=== PATIENT | female | born 1935 | race Caucasian/White ===

== ENCOUNTER 2016-12-13 05:29 | Day surgery (SDC) | payer OTHER, BC ==
[~2016-12-13] VITALS: Ht 157.5 cm; Wt 69.4 kg
[~2016-12-13 05:29] MED LIST: ADULT LOW DOSE81 M1 PO; ADVAIR 100/501 DISK IH; GLIPIZIDE5 MG PO; GLUCOTROL XL2.5 MG PO; LIPITOR40 MG PO; LOSARTAN-HCTZ1 EAC1 PO; MULTIVITAMIN1 EAC2 PO; OMEPRAZOLE40 M1 PO; PROAIR HFA8.5 GM IH; TOFRANIL25 MG PO; VENTOLIN HFA18 GM IH
[2016-12-13 05:50] VITALS: BP 127/62
[2016-12-13 06:14] LABS: POINT-OF-CARE METER ID UU13113694
[2016-12-13 12:14] LABS: POINT-OF-CARE METER ID UU13113675
[2016-12-13 13:30] VITALS: BP 104/48
[2016-12-13] MEDS ORDERED: ASMANEX TW200 MICRO1 PO (14:25)
[2016-12-13 15:20] VITALS: BP 132/58
[2016-12-13 17:24] LABS: POINT-OF-CARE METER ID UU14162508; POINT-OF-CARE USER ID PUTDRM
[2016-12-13 19:44] VITALS: BP 139/64
[2016-12-13 22:00] LABS: POINT-OF-CARE METER ID UU14208750
[2016-12-13 23:39] VITALS: BP 110/56
[2016-12-14 04:15] VITALS: BP 117/57
[2016-12-14 06:30] LABS: POINT-OF-CARE METER ID UU14162508
[2016-12-14 06:43] LABS: HEMATOCRIT 33.5 % (36.0-46.0); MCH 28.9 PG (29.0-34.0); MCHC 32.8 G/DL (30.0-36.0); MCV 88.2 FL (83-99); PLATELET COUNT 200 K/uL (156-360); RBC DIS.WIDTH-CV 12.9 % (11.8-14.6); RBC DIS.WIDTH-SD 41.2 % (39-53); WHITE BLOOD COUNT 4.6 K/uL (4.1-10.2)
[2016-12-14 07:10] LABS: ANION GAP 7 MEQ/L (2-14); CHLORIDE 112 MEQ/L (99-109); GFR ESTIMATE (CALCULATED) 50 mL/min/; GLUCOSE 77 mg/dL (70-99); POTASSIUM 4.1 MEQ/L (3.7-5.4); SAMPLE HEMOLYSIS CHECK 0; SAMPLE ICTERIC CHECK 0; SAMPLE LIPEMIA CHECK 0; SODIUM 145 MEQ/L (136-147); UREA NITROGEN (BUN) 18 mg/dL (9-23)
[2016-12-14 07:42] VITALS: BP 139/66
[2016-12-14] MEDS ORDERED: NORCO 5/3251 TABLET PO (09:37)
[2016-12-14 11:28] VITALS: BP 115/55
[2016-12-14 11:52] LABS: POINT-OF-CARE METER ID UU14208750
== END 2016-12-14 12:40 | disposition home or self-care (01) ==
LOC: SDC 05:29 → 2SOUTH 11:49 → 2EAST 11:49 → 2SOUTH 11:49 → ENRESERV 12:10 → SDC 13:03 → 2EAST 13:20 → SDC 14:23 → 2EAST 12-14 12:40
PROVIDERS: Surgery
DX: C50.912 Malignant neoplasm of unspecified site of left female breast (principal); C77.3 Secondary and unspecified malignant neoplasm of axilla and upper limb lymph nodes; E78.5 Hyperlipidemia, unspecified; I10 Essential (primary) hypertension; J44.9 Chronic obstructive pulmonary disease, unspecified; Z87.891 Personal history of nicotine dependence; Z80.0 Family history of malignant neoplasm of digestive organs; Z80.3 Family history of malignant neoplasm of breast; Z82.49 Family history of ischemic heart disease and other diseases of the circulatory system
CPT/HCPCS: 78195; 78999; 80048; 82948; 85027; 88305; 88309; 88331; 99202; A9541; G0378; J0330; J1170; J2405; J2765; J3010; J3370; J7120

== ENCOUNTER 2017-01-24 00:23 | Inpatient (IN) | payer OTHER, BC ==
[~2017-01-24] VITALS: Ht 157.5 cm; Wt 73.8 kg
[~2017-01-24 00:23] MED LIST changes: +ASMANEX TW200 MICRO1 PO; +NORCO 5/3251 TABLET PO
[2017-01-24 00:55] LABS: HEMATOCRIT 35.1 % (36.0-46.0); MCH 28.3 PG (29.0-34.0); MCHC 32.8 G/DL (30.0-36.0); MCV 86.2 FL (83-99); MEAN PLAT.VOLUME 9.4 uM^3 (9.5-12.4); RBC DIS.WIDTH-CV 13.2 % (11.8-14.6); RBC DIS.WIDTH-SD 41.4 % (39-53); RED BLOOD COUNT 4.07 M/uL (3.80-5.20); WHITE BLOOD COUNT 10.8 K/uL (4.1-10.2)
[2017-01-24 01:01] LABS: PLATELET COUNT 204 K/uL (156-360)
[2017-01-24 01:10] LABS: CHLORIDE 99 mEq/L (99-109); POTASSIUM 3.9 mEq/L (3.7-5.4); SODIUM 137 mEq/L (136-147)
[2017-01-24 01:12] LABS: GLUCOSE 91 mg/dL (70-99)
[2017-01-24 01:13] LABS: ANION GAP 10 MEQ/L (2-14)
[2017-01-24 01:14] LABS: TOTAL BILIRUBIN 0.6 mg/dL (0.0-1.0)
[2017-01-24 01:15] LABS: TROP-I INTERPRETATION NEGATIVE; TROPONIN-I 0.01 ng/mL (0.0-0.30)
[2017-01-24 01:16] LABS: ALKALINE PHOSPHATASE 90 IU/L (3-129); GFR ESTIMATE (CALCULATED) 14 mL/min/
[2017-01-24 01:17] LABS: UREA NITROGEN (BUN) 43 mg/dL (9-23)
[2017-01-24 01:19] LABS: LIPASE 35 U/L (1.0-51.0)
[2017-01-24 01:50] LABS: ADD MIUA? YES; BILIRUBIN NEGATIVE; BLOOD LARGE; COLOR LT. YELLOW ((YELLOW)); GLUCOSE (STRIP) NEGATIVE; KETONES NEGATIVE; LEUKOCYTES LARGE; NITRITE POSITIVE; PH, URINE 6 (5-8); PROTEIN (STRIP) 100; SPECIFIC GRAVITY 1.015 (1.000-1.030); UROBILINOGEN 0.2 MG/DL (0.2-1.0)
[2017-01-24 01:53] LABS: UCUL ADDED? YES; WHITE BLOOD CELLS TNTC /HPF (0-5)
[2017-01-24 02:26] LABS: CREATINE KINASE 25 IU/L (1-294)
[2017-01-24 05:44] VITALS: BP 111/52
[2017-01-24 06:41] VITALS: BP 82/46
[2017-01-24 06:42] LABS: Estimated Average Glucose 143 mg/dL (70-123); HEMOGLOBIN A1c (GLYCOHEMOGLOB) 6.6 % HGB (Below 5.7)
[2017-01-24 07:23] LABS: POINT-OF-CARE METER ID UU13113725
[2017-01-24 09:30] LABS: ANION GAP 13 MEQ/L (2-14); CHLORIDE 108 MEQ/L (99-109); GFR ESTIMATE (CALCULATED) 17 mL/min/; GLUCOSE 67 mg/dL (70-99); POTASSIUM 3.8 MEQ/L (3.7-5.4); SAMPLE HEMOLYSIS CHECK 0; SAMPLE ICTERIC CHECK 0; SAMPLE LIPEMIA CHECK 0; SODIUM 140 MEQ/L (136-147); UREA NITROGEN (BUN) 36 mg/dL (9-23)
[2017-01-24 11:00] VITALS: BP 93/44
[2017-01-24 11:15] LABS: POINT-OF-CARE METER ID UU13113725
[2017-01-24 13:03] LABS: POINT-OF-CARE METER ID UU13113675
[2017-01-24 13:55] LABS: POINT-OF-CARE METER ID UU13113675
[2017-01-24 15:15] VITALS: BP 153/56
[2017-01-24 18:11] LABS: ANION GAP 11 MEQ/L (2-14); CHLORIDE 110 MEQ/L (99-109); POTASSIUM 3.4 MEQ/L (3.7-5.4); SAMPLE HEMOLYSIS CHECK 0; SAMPLE ICTERIC CHECK 0; SAMPLE LIPEMIA CHECK 0; SODIUM 142 MEQ/L (136-147)
[2017-01-24 18:16] LABS: GFR ESTIMATE (CALCULATED) 20 mL/min/; UREA NITROGEN (BUN) 33 mg/dL (9-23)
[2017-01-24 18:27] LABS: GLUCOSE 102 mg/dL (70-99)
[2017-01-25 00:44] VITALS: BP 101/54
[2017-01-25 00:47] LABS: POINT-OF-CARE METER ID UU13113725
[2017-01-25 01:29] LABS: POINT-OF-CARE METER ID UU13113725; POINT-OF-CARE USER ID 608261316
[2017-01-25 02:41] LABS: UR CREATININE CONCENTRATION 38.6 MG/DL
[2017-01-25 06:38] LABS: HEMATOCRIT 29.9 % (36.0-46.0); MCH 28.1 PG (29.0-34.0); MCHC 32.1 G/DL (30.0-36.0); MCV 87.4 FL (83-99); MEAN PLAT.VOLUME 10.1 uM^3 (9.5-12.4); PLATELET COUNT 210 K/uL (156-360); RBC DIS.WIDTH-CV 13.4 % (11.8-14.6); RBC DIS.WIDTH-SD 42.6 % (39-53); RED BLOOD COUNT 3.42 M/uL (3.80-5.20); WHITE BLOOD COUNT 20.2 K/uL (4.1-10.2)
[2017-01-25 06:41] LABS: POINT-OF-CARE METER ID UU13113725
[2017-01-25 07:02] LABS: ANION GAP 10 MEQ/L (2-14); CHLORIDE 111 MEQ/L (99-109); GFR ESTIMATE (CALCULATED) 22 mL/min/; POTASSIUM 3.6 MEQ/L (3.7-5.4); SAMPLE HEMOLYSIS CHECK 0; SAMPLE ICTERIC CHECK 0; SAMPLE LIPEMIA CHECK 0; SODIUM 143 MEQ/L (136-147); UREA NITROGEN (BUN) 32 mg/dL (9-23)
[2017-01-25 07:03] LABS: GLUCOSE 54 mg/dL (70-99)
[2017-01-25 07:46] LABS: POINT-OF-CARE METER ID UU13113725
[2017-01-25 08:30] VITALS: BP 120/68
[2017-01-25 09:24] LABS: ATYPICAL LYMPHOCYTE 0.9 %; BAND NEUTROPHILS 8.7 % (0-8.0); BASOPHILS 0.4 %; EOSINOPHIL ABS CT 0.1; EOSINOPHILS 0.4 % (0-5.0); INSTRUMENT ABS NEUTROPHIL CT 13.3 K/uL; LYMPHOCYTES 10.4 % (15.0-45.0); METAMYELOCYTES 0.9 %; MYELOCYTES 5.2 %; PLAT.SUFFICIENCY ADEQUATE; SEG.NEUTROPHILS 70.5 % (46.0-76.0)
[2017-01-25 10:53] LABS: POINT-OF-CARE METER ID UU13113725
[2017-01-25 16:08] VITALS: BP 125/60
[2017-01-25 16:35] VITALS: BP 130/60
[2017-01-25 16:55] LABS: POINT-OF-CARE METER ID UU13113774
[2017-01-25 19:25] LABS: POINT-OF-CARE METER ID UU13113725
[2017-01-25 21:02] LABS: POINT-OF-CARE METER ID UU13113725
[2017-01-25 21:34] VITALS: BP 119/60
[2017-01-25 23:51] VITALS: BP 124/65
[2017-01-26 01:07] LABS: POINT-OF-CARE METER ID UU13113717
[2017-01-26 03:45] VITALS: BP 130/67
[2017-01-26 06:09] LABS: POINT-OF-CARE METER ID UU14188625
[2017-01-26 06:43] LABS: HEMATOCRIT 31.1 % (36.0-46.0); MCH 27.9 PG (29.0-34.0); MCHC 32.2 G/DL (30.0-36.0); MCV 86.9 FL (83-99); MEAN PLAT.VOLUME 9.5 uM^3 (9.5-12.4); PLATELET COUNT 242 K/uL (156-360); RBC DIS.WIDTH-CV 13.2 % (11.8-14.6); RBC DIS.WIDTH-SD 41.8 % (39-53); RED BLOOD COUNT 3.58 M/uL (3.80-5.20); WHITE BLOOD COUNT 19.7 K/uL (4.1-10.2)
[2017-01-26 07:05] LABS: HDL CHOLESTEROL 22 MG/DL (Desirable>=50); LDL CHOLESTEROL 14 mg/dL (Desirable<100); NON-HDL CHOLESTEROL 27 mg/dL (Desirable<160); TOTAL CHOLESTEROL 49 mg/dL (Desirable<200); TRIGLYCERIDES 65 MG/DL (Normal: <150)
[2017-01-26 07:08] LABS: ANION GAP 9 MEQ/L (2-14); CHLORIDE 113 MEQ/L (99-109); GFR ESTIMATE (CALCULATED) 29 mL/min/; POTASSIUM 3.7 MEQ/L (3.7-5.4); SAMPLE HEMOLYSIS CHECK 0; SAMPLE ICTERIC CHECK 0; SAMPLE LIPEMIA CHECK 0; SODIUM 144 MEQ/L (136-147); UREA NITROGEN (BUN) 25 mg/dL (9-23)
[2017-01-26 07:10] LABS: ABS NEUTROPHIL COUNT 14.9; BAND NEUTROPHILS 3.4 % (0-8.0); EOSINOPHIL ABS CT 0; HEMATOLOGY COMMENT 1 SN; INSTRUMENT ABS NEUTROPHIL CT 11.3 K/uL; LYMPHOCYTES 9.3 % (15.0-45.0); METAMYELOCYTES 6.8 %; MYELOCYTES 3.4 %; PLAT.SUFFICIENCY ADEQUATE
[2017-01-26 07:20] LABS: GLUCOSE 81 mg/dL (70-99)
[2017-01-26 08:13] VITALS: BP 131/58
[2017-01-26 12:25] VITALS: BP 133/61
[2017-01-26 12:41] LABS: POINT-OF-CARE METER ID UU14188625
[2017-01-26 17:11] VITALS: BP 146/62
[2017-01-26 19:37] VITALS: BP 155/71
[2017-01-26 23:36] VITALS: BP 155/68
[2017-01-27 03:49] VITALS: BP 144/75
[2017-01-27 05:51] LABS: HEMATOCRIT 30.4 % (36.0-46.0); MCHC 33.2 G/DL (30.0-36.0); MCV 87.4 FL (83-99); MEAN PLAT.VOLUME 9.3 uM^3 (9.5-12.4); PLATELET COUNT 247 K/uL (156-360); RBC DIS.WIDTH-CV 13.4 % (11.8-14.6); RBC DIS.WIDTH-SD 42.5 % (39-53); RED BLOOD COUNT 3.48 M/uL (3.80-5.20); WHITE BLOOD COUNT 18.6 K/uL (4.1-10.2)
[2017-01-27 06:14] LABS: ANION GAP 8 MEQ/L (2-14); CHLORIDE 114 MEQ/L (99-109); GFR ESTIMATE (CALCULATED) 35 mL/min/; GLUCOSE 82 mg/dL (70-99); POTASSIUM 3.7 MEQ/L (3.7-5.4); SAMPLE HEMOLYSIS CHECK 0; SAMPLE ICTERIC CHECK 0; SAMPLE LIPEMIA CHECK 0; SODIUM 145 MEQ/L (136-147); UREA NITROGEN (BUN) 18 mg/dL (9-23)
[2017-01-27 07:31] LABS: ABS NEUTROPHIL COUNT 15.5; ANISOCYTOSIS 1+; BASOPHILS 0.9 %; EOSINOPHIL ABS CT 0.2; EOSINOPHILS 0.9 % (0-5.0); INSTRUMENT ABS NEUTROPHIL CT 10.5 K/uL; METAMYELOCYTES 2.6 %; NUCLEATED RBC'S 1.8; OVALOCYTES 1+; PLAT.SUFFICIENCY ADEQUATE; POIKILOCYTOSIS 1+; SEG.NEUTROPHILS 57.5 % (46.0-76.0)
[2017-01-27 07:54] VITALS: BP 144/66
[2017-01-27 08:39] LABS: BAND NEUTROPHILS 25.7 % (0-8.0)
[2017-01-27 21:36] LABS: POINT-OF-CARE METER ID UU14188625
[2017-01-27 23:49] VITALS: BP 161/72
[2017-01-28 05:42] LABS: POINT-OF-CARE METER ID UU13113717
[2017-01-28 06:15] LABS: ANION GAP 10 MEQ/L (2-14); CHLORIDE 112 MEQ/L (99-109); GFR ESTIMATE (CALCULATED) 33 mL/min/; GLUCOSE 91 mg/dL (70-99); POTASSIUM 3.7 MEQ/L (3.7-5.4); SAMPLE HEMOLYSIS CHECK 0; SAMPLE ICTERIC CHECK 0; SAMPLE LIPEMIA CHECK 0; SODIUM 144 MEQ/L (136-147); UREA NITROGEN (BUN) 21 mg/dL (9-23)
[2017-01-28 06:17] LABS: HEMATOCRIT 30.2 % (36.0-46.0); MCH 28.3 PG (29.0-34.0); MCHC 32.1 G/DL (30.0-36.0); MEAN PLAT.VOLUME 9.1 uM^3 (9.5-12.4); NRBC (%) 0.2 /100 WBC (0-0); PLATELET COUNT 243 K/uL (156-360); RBC DIS.WIDTH-CV 13.2 % (11.8-14.6); RBC DIS.WIDTH-SD 42.8 % (39-53); RED BLOOD COUNT 3.43 M/uL (3.80-5.20); WHITE BLOOD COUNT 16.6 K/uL (4.1-10.2)
[2017-01-28 07:38] LABS: ABS NEUTROPHIL COUNT 11.3; ANISOCYTOSIS 1+; EOSINOPHIL ABS CT 0; INSTRUMENT ABS NEUTROPHIL CT 9.8 K/uL; PLAT.SUFFICIENCY ADEQUATE; POIKILOCYTOSIS 1+
[2017-01-28 08:06] LABS: POINT-OF-CARE METER ID UU13113717
[2017-01-28 08:57] VITALS: BP 126/72
[2017-01-28 11:48] LABS: POINT-OF-CARE METER ID UU13113717
[2017-01-28 16:50] VITALS: BP 131/58
[2017-01-28 20:53] LABS: POINT-OF-CARE METER ID UU13113717
[2017-01-29 00:10] VITALS: BP 164/66
[2017-01-29] MEDS ORDERED: ATORVASTATIN CA80 MG PO (01:01)
[2017-01-29 05:50] LABS: HEMATOCRIT 30.2 % (36.0-46.0); MCH 29.1 PG (29.0-34.0); MCHC 33.1 G/DL (30.0-36.0); MCV 87.8 FL (83-99); MEAN PLAT.VOLUME 9.2 uM^3 (9.5-12.4); PLATELET COUNT 229 K/uL (156-360); RBC DIS.WIDTH-CV 13.5 % (11.8-14.6); RED BLOOD COUNT 3.44 M/uL (3.80-5.20); WHITE BLOOD COUNT 15.1 K/uL (4.1-10.2)
[2017-01-29 06:14] LABS: ANION GAP 8 MEQ/L (2-14); CHLORIDE 113 MEQ/L (99-109); GFR ESTIMATE (CALCULATED) 42 mL/min/; GLUCOSE 94 mg/dL (70-99); POTASSIUM 3.8 MEQ/L (3.7-5.4); SAMPLE HEMOLYSIS CHECK 0; SAMPLE ICTERIC CHECK 0; SAMPLE LIPEMIA CHECK 0; SODIUM 145 MEQ/L (136-147); UREA NITROGEN (BUN) 18 mg/dL (9-23)
[2017-01-29 06:56] LABS: ANISOCYTOSIS 1+; EOSINOPHIL ABS CT 0; INSTRUMENT ABS NEUTROPHIL CT 8.4 K/uL; PLAT.SUFFICIENCY ADEQUATE; POIKILOCYTOSIS 1+
[2017-01-29 08:16] LABS: POINT-OF-CARE METER ID UU14188625
[2017-01-29 08:22] VITALS: BP 144/65
[2017-01-29 12:06] LABS: POINT-OF-CARE METER ID UU14188625
[2017-01-29 15:55] VITALS: BP 119/56
[2017-01-29 17:07] LABS: POINT-OF-CARE METER ID UU14188625
[2017-01-29 20:59] LABS: POINT-OF-CARE METER ID UU14188625
[2017-01-30] VITALS: BP 145/75
[2017-01-30 05:59] LABS: HEMATOCRIT 30.4 % (36.0-46.0); MCH 28.5 PG (29.0-34.0); MCHC 32.6 G/DL (30.0-36.0); MCV 87.6 FL (83-99); MEAN PLAT.VOLUME 9.2 uM^3 (9.5-12.4); PLATELET COUNT 228 K/uL (156-360); RBC DIS.WIDTH-CV 13.6 % (11.8-14.6); RBC DIS.WIDTH-SD 42.2 % (39-53); RED BLOOD COUNT 3.47 M/uL (3.80-5.20); WHITE BLOOD COUNT 18.3 K/uL (4.1-10.2)
[2017-01-30 06:27] LABS: ANION GAP 8 MEQ/L (2-14); CHLORIDE 111 MEQ/L (99-109); GFR ESTIMATE (CALCULATED) 42 mL/min/; GLUCOSE 102 mg/dL (70-99); POTASSIUM 3.8 MEQ/L (3.7-5.4); SAMPLE HEMOLYSIS CHECK 0; SAMPLE ICTERIC CHECK 0; SAMPLE LIPEMIA CHECK 0; SODIUM 143 MEQ/L (136-147); UREA NITROGEN (BUN) 18 mg/dL (9-23)
[2017-01-30 06:32] LABS: ABS NEUTROPHIL COUNT 14.4; ATYPICAL LYMPHOCYTE 0.9 %; BAND NEUTROPHILS 2.6 % (0-8.0); EOSINOPHIL ABS CT 0; INSTRUMENT ABS NEUTROPHIL CT 13.2 K/uL; MYELOCYTES 3.4 %; PLAT.SUFFICIENCY ADEQUATE
[2017-01-30 06:51] LABS: LYMPHOCYTES 9.5 % (15.0-45.0); SEG.NEUTROPHILS 75.9 % (46.0-76.0)
[2017-01-30 08:06] LABS: POINT-OF-CARE METER ID UU14188625
[2017-01-30 08:12] VITALS: BP 142/68
[2017-01-30 12:05] LABS: POINT-OF-CARE METER ID UU14188625
[2017-01-30 16:28] VITALS: BP 133/60
[2017-01-30 17:36] LABS: POINT-OF-CARE METER ID UU14188625
[2017-01-30 21:27] LABS: POINT-OF-CARE METER ID UU13113717
[2017-01-31 00:24] VITALS: BP 136/51
[2017-01-31] MEDS ORDERED: CEPHALEXIN500 MG PO (00:29)
[2017-01-31] MEDS ORDERED: METRONIDAZOLE500 MG PO (00:30)
[2017-01-31] MEDS ORDERED: ASPIR-LOW81 MG PO (00:30)
[2017-01-31] MEDS ORDERED: LOSARTAN POTASS25 MG PO (00:53)
[2017-01-31 06:38] LABS: HEMATOCRIT 29.5 % (36.0-46.0); MCH 29.3 PG (29.0-34.0); MCHC 33.2 G/DL (30.0-36.0); MCV 88.1 FL (83-99); MEAN PLAT.VOLUME 9.5 uM^3 (9.5-12.4); NRBC (%) 0.1 /100 WBC (0-0); PLATELET COUNT 224 K/uL (156-360); RBC DIS.WIDTH-CV 13.9 % (11.8-14.6); RBC DIS.WIDTH-SD 43.7 % (39-53); RED BLOOD COUNT 3.35 M/uL (3.80-5.20); WHITE BLOOD COUNT 13.8 K/uL (4.1-10.2)
[2017-01-31 06:57] LABS: ANION GAP 8 MEQ/L (2-14); CHLORIDE 112 MEQ/L (99-109); POTASSIUM 4.1 MEQ/L (3.7-5.4); SAMPLE HEMOLYSIS CHECK 0; SAMPLE ICTERIC CHECK 0; SAMPLE LIPEMIA CHECK 0; SODIUM 144 MEQ/L (136-147)
[2017-01-31 07:02] LABS: ABS NEUTROPHIL COUNT 11.1; BAND NEUTROPHILS 5.2 % (0-8.0); EOSINOPHIL ABS CT 0.1; EOSINOPHILS 0.8 % (0-5.0); GFR ESTIMATE (CALCULATED) 50 mL/min/; GLUCOSE 100 mg/dL (70-99); INSTRUMENT ABS NEUTROPHIL CT 9.1 K/uL; LYMPHOCYTES 8.6 % (15.0-45.0); MYELOCYTES 5.2 %; PLAT.SUFFICIENCY ADEQUATE; UREA NITROGEN (BUN) 20 mg/dL (9-23)
[2017-01-31 08:00] VITALS: BP 130/53
[2017-01-31] MEDS ORDERED: ROCEPHIN1 GM/50 ML IV (14:57)
[2017-01-31] MEDS ORDERED: PEPCID20 MG PO (14:58)
[2017-01-31] MEDS ORDERED: HEPARIN SO5000 UNIT4 SC (14:59)
[2017-01-31] MEDS ORDERED: FLOVENT 11120 INHALA IH (15:00)
== END 2017-01-31 14:45 | DRG 682 ==
LOC: EME 00:23 → 5EAST 04:03 → EDOF 04:03 → ENRESERV 04:06 → 5EAST 05:27 → ENRESERV 01-25 19:10 → 5SOUTH 01-25 21:24
PROVIDERS: Emergency Medicine; Hospitalist; Internal Medicine; Internal Medicine Nephrology
PROC: 0T778DZ Dilation of Left Ureter with Intraluminal Device, Via Natural or Artificial Opening Endoscopic (ICD-10-PCS; principal; 2017-01-24)
DX: N17.0 Acute kidney failure with tubular necrosis (principal); E86.0 Dehydration; N13.6 Pyonephrosis; B96.20 Unspecified Escherichia coli [E. coli] as the cause of diseases classified elsewhere; K57.32 Diverticulitis of large intestine without perforation or abscess without bleeding; I97.821 Postprocedural cerebrovascular infarction following other surgery; I63.512 Cerebral infarction due to unspecified occlusion or stenosis of left middle cerebral artery; G81.91 Hemiplegia, unspecified affecting right dominant side; L03.114 Cellulitis of left upper limb; L03.113 Cellulitis of right upper limb; L03.311 Cellulitis of abdominal wall; I12.9 Hypertensive chronic kidney disease with stage 1 through stage 4 chronic kidney disease, or unspecified chronic kidney disease; N18.9 Chronic kidney disease, unspecified; E11.22 Type 2 diabetes mellitus with diabetic chronic kidney disease; E11.649 Type 2 diabetes mellitus with hypoglycemia without coma; J44.9 Chronic obstructive pulmonary disease, unspecified; C50.912 Malignant neoplasm of unspecified site of left female breast; L89.91 Pressure ulcer of unspecified site, stage 1; K21.9 Gastro-esophageal reflux disease without esophagitis; E78.5 Hyperlipidemia, unspecified; Z88.2 Allergy status to sulfonamides; Z88.1 Allergy status to other antibiotic agents; Z87.891 Personal history of nicotine dependence
CPT/HCPCS: 70551; 71020; 74176; 74420; 80048; 80048 91; 80053; 80061; 80069; 81003; 82436; 82550; 82570; 82948; 83036; 83605; 83630; 83690; 84133; 84300; 84484; 84540; 85025; 85027; 87040; 87077; 87086; 87086 GA; 87186; 87493; 87506; 92610 GN; 93005; 93306; 93880; 93971; 94640; 94640 76; 97530 GO; 97530 GP; 99202; 99281; 99285; C1758; C1769; J0696; J0744; J1644; J1815; J2405; J3010; J7030; J7042; J7050; J7120; S0030

== ENCOUNTER 2017-01-31 14:39 | Inpatient (IN) | payer OTHER, BC ==
[~2017-01-31] VITALS: Ht 157.5 cm; Wt 75.0 kg
[~2017-01-31 14:39] MED LIST changes: +ASPIR-LOW81 MG PO; +ATORVASTATIN CA80 MG PO; +CEPHALEXIN500 MG PO; +LOSARTAN POTASS25 MG PO; +METRONIDAZOLE500 MG PO
[2017-01-31] MEDS ORDERED: ROCEPHIN1 GM/50 ML IV (14:57)
[2017-01-31] MEDS ORDERED: PEPCID20 MG PO (14:58)
[2017-01-31] MEDS ORDERED: HEPARIN SO5000 UNIT4 SC (14:59)
[2017-01-31] MEDS ORDERED: FLOVENT 11120 INHALA IH (15:00)
[2017-01-31 15:11] VITALS: BP 151/62
[2017-01-31 17:01] LABS: POINT-OF-CARE METER ID UU13113720
[2017-01-31 21:23] LABS: POINT-OF-CARE METER ID UU13113720
[2017-02-01 04:44] VITALS: BP 141/86
[2017-02-01 06:32] LABS: HEMATOCRIT 30.3 % (36.0-46.0); MCH 29.1 PG (29.0-34.0); MCHC 32.7 G/DL (30.0-36.0); MCV 89.1 FL (83-99); PLATELET COUNT 259 K/uL (156-360); RBC DIS.WIDTH-SD 45.1 % (39-53); WHITE BLOOD COUNT 12.1 K/uL (4.1-10.2)
[2017-02-01 07:01] LABS: ALKALINE PHOSPHATASE 65 IU/L (3-129); ANION GAP 6 MEQ/L (2-14); CHLORIDE 111 MEQ/L (99-109); GFR ESTIMATE (CALCULATED) 50 mL/min/; GLUCOSE 94 mg/dL (70-99); POTASSIUM 4.6 MEQ/L (3.7-5.4); SAMPLE HEMOLYSIS CHECK 0; SAMPLE ICTERIC CHECK 0; SAMPLE LIPEMIA CHECK 0; SODIUM 143 MEQ/L (136-147); TOTAL BILIRUBIN 0.3 MG/DL (0.0-1.0); UREA NITROGEN (BUN) 23 mg/dL (9-23)
[2017-02-01 11:27] LABS: POINT-OF-CARE METER ID UU13113720; POINT-OF-CARE USER ID AHSSSJB31
[2017-02-01 16:00] VITALS: BP 144/66
[2017-02-01 16:45] LABS: POINT-OF-CARE METER ID UU14174215
[2017-02-01 21:20] LABS: POINT-OF-CARE METER ID UU14174215
[2017-02-02 04:25] VITALS: BP 136/64
[2017-02-02 07:03] LABS: POINT-OF-CARE METER ID UU14174215
[2017-02-02 11:02] LABS: POINT-OF-CARE METER ID UU14174215
[2017-02-02 16:01] VITALS: BP 123/59
[2017-02-02 16:41] LABS: POINT-OF-CARE METER ID UU13113720
[2017-02-02 21:12] LABS: POINT-OF-CARE METER ID UU14174215
[2017-02-03 04:40] VITALS: BP 121/58
[2017-02-03 06:56] LABS: POINT-OF-CARE METER ID UU13113720; POINT-OF-CARE USER ID ENVGAF
[2017-02-03 11:12] LABS: POINT-OF-CARE METER ID UU14174215
[2017-02-03 12:53] LABS: POINT-OF-CARE METER ID UU14174215
[2017-02-03 15:05] VITALS: BP 142/65
[2017-02-03 16:06] LABS: POINT-OF-CARE METER ID UU14174215
[2017-02-03 21:04] LABS: POINT-OF-CARE METER ID UU14174215
[2017-02-04 05:34] VITALS: BP 146/67
[2017-02-04 06:54] LABS: POINT-OF-CARE METER ID UU13113720; POINT-OF-CARE USER ID ENVGAF
[2017-02-04 11:25] LABS: POINT-OF-CARE METER ID UU14174215
[2017-02-04 15:12] VITALS: BP 150/66
[2017-02-04 16:33] LABS: POINT-OF-CARE METER ID UU14174215
[2017-02-04 20:10] VITALS: BP 121/78
[2017-02-04 21:16] LABS: POINT-OF-CARE METER ID UU14174215
[2017-02-05 05:05] VITALS: BP 112/59
[2017-02-05 07:09] LABS: POINT-OF-CARE METER ID UU14174215
[2017-02-05 11:44] LABS: POINT-OF-CARE METER ID UU14174215; POINT-OF-CARE USER ID AHSSSJB31
[2017-02-05 16:00] VITALS: BP 157/67
[2017-02-05 16:47] LABS: POINT-OF-CARE METER ID UU14174215
[2017-02-05 21:04] LABS: POINT-OF-CARE METER ID UU13113720
[2017-02-06 04:05] VITALS: BP 150/64
[2017-02-06 07:23] LABS: POINT-OF-CARE METER ID UU14174215
[2017-02-06 11:44] LABS: POINT-OF-CARE METER ID UU13113720; POINT-OF-CARE USER ID AHSSSJB31
[2017-02-06 15:30] VITALS: BP 142/62
[2017-02-06 16:43] LABS: POINT-OF-CARE METER ID UU13113720
[2017-02-06 20:42] LABS: POINT-OF-CARE METER ID UU13113720
[2017-02-07 05:14] VITALS: BP 130/63
[2017-02-07 07:55] LABS: POINT-OF-CARE METER ID UU14174215
[2017-02-07 11:52] LABS: POINT-OF-CARE METER ID UU14174215
[2017-02-07 14:53] VITALS: BP 146/64
[2017-02-07 16:38] LABS: POINT-OF-CARE METER ID UU14174215
[2017-02-07 21:10] LABS: POINT-OF-CARE METER ID UU14174215
[2017-02-08 05:16] LABS: BASOPHIL COUNT 0.1 K/uL (0-0.1); EOSINOPHIL (%) 3.3 % (0-5); EOSINOPHIL COUNT 0.2 K/uL (0-0.3); HEMATOCRIT 32.1 % (36.0-46.0); IMMATURE GRANULOCYTE (%) 2.7 % (0.0-0.7); IMMATURE GRANULOCYTE COUNT 0.2 K/uL; INSTRUMENT ABS NEUTROPHIL CT 3.8 K/uL; LYMPHOCYTE COUNT 1.9 K/uL (1.0-2.8); MCH 28.6 PG (29.0-34.0); MCHC 31.8 G/DL (30.0-36.0); MCV 89.9 FL (83-99); MEAN PLAT.VOLUME 9.1 uM^3 (9.5-12.4); MONOCYTE (%) 14.3 % (3-12); MONOCYTE COUNT 1.1 K/uL (0-0.8); NEUTROPHIL (%) 51.6 % (45-76); NEUTROPHIL COUNT 3.8 K/uL (1.8-6.4); RBC DIS.WIDTH-CV 15.8 % (11.8-14.6); RBC DIS.WIDTH-SD 49.9 % (39-53); RED BLOOD COUNT 3.57 M/uL (3.80-5.20); WHITE BLOOD COUNT 7.4 K/uL (4.1-10.2)
[2017-02-08 05:18] LABS: PLATELET COUNT 523 K/uL (156-360)
[2017-02-08 05:35] LABS: CHLORIDE 110 mEq/L (99-109); POTASSIUM 4.7 mEq/L (3.7-5.4); SODIUM 143 mEq/L (136-147)
[2017-02-08 05:37] LABS: GLUCOSE 89 mg/dL (70-99)
[2017-02-08 05:38] LABS: ANION GAP 7 MEQ/L (2-14)
[2017-02-08 05:39] LABS: TOTAL BILIRUBIN 0.4 mg/dL (0.0-1.0)
[2017-02-08 05:41] LABS: ALKALINE PHOSPHATASE 67 IU/L (3-129); GFR ESTIMATE (CALCULATED) 50 mL/min/
[2017-02-08 05:42] LABS: UREA NITROGEN (BUN) 27 mg/dL (9-23)
[2017-02-08 07:49] LABS: POINT-OF-CARE METER ID UU14174215
[2017-02-08 10:15] VITALS: BP 140/62
[2017-02-08 11:39] LABS: POINT-OF-CARE METER ID UU14174215
[2017-02-08 15:32] VITALS: BP 180/79
[2017-02-08 15:48] VITALS: BP 160/67
[2017-02-08 16:35] LABS: POINT-OF-CARE METER ID UU14174215
[2017-02-08 21:14] LABS: POINT-OF-CARE METER ID UU13113720
[2017-02-09 04:51] VITALS: BP 122/76
[2017-02-09 07:38] LABS: POINT-OF-CARE METER ID UU13113720; POINT-OF-CARE USER ID AHSSSJB31
[2017-02-09 09:13] VITALS: BP 150/65
[2017-02-09 12:08] LABS: POINT-OF-CARE METER ID UU13113720
[2017-02-09] MEDS ORDERED: LOSARTAN POTASS25 MG PO (12:58)
[2017-02-09] MEDS ORDERED: ASPIR-LOW81 MG PO (12:58)
[2017-02-09] MEDS ORDERED: ATORVASTATIN CA80 MG PO (12:58)
[2017-02-09] MEDS ORDERED: GLUCOTROL XL2.5 MG PO (12:58)
[2017-02-09 15:42] VITALS: BP 134/73
[2017-02-09 16:23] LABS: POINT-OF-CARE METER ID UU14174215
[2017-02-09 21:17] LABS: POINT-OF-CARE METER ID UU14174215
[2017-02-10 05:19] VITALS: BP 148/61
[2017-02-10 07:32] LABS: POINT-OF-CARE METER ID UU14174215; POINT-OF-CARE USER ID NUTSLF44
[2017-02-10 11:34] LABS: POINT-OF-CARE METER ID UU14174215; POINT-OF-CARE USER ID NUTSLF44
[2017-02-10] MEDS ORDERED: ASPIR-LOW81 MG PO (12:30)
[2017-02-10] MEDS ORDERED: ASMANEX TW200 MICRO1 PO (12:30)
[2017-02-10] MEDS ORDERED: LOSARTAN POTASS25 MG PO (12:30)
[2017-02-10] MEDS ORDERED: ATORVASTATIN CA80 MG PO (12:30)
== END 2017-02-10 14:35 | disposition home or self-care (01) | DRG 57 ==
LOC: 3WEST 14:39 → ENPENDDIS 02-10 → 3WEST 02-10 11:56
PROVIDERS: Physical Medicine & Rehabilitation Pain Medicine; Psychiatry & Neurology Neurology
PROC: F07M0ZZ Range of Motion and Joint Mobility Treatment of Musculoskeletal System - Whole Body (ICD-10-PCS; principal; 2017-01-31)
DX: I69.351 Hemiplegia and hemiparesis following cerebral infarction affecting right dominant side (principal); E78.5 Hyperlipidemia, unspecified; E11.9 Type 2 diabetes mellitus without complications; I10 Essential (primary) hypertension; R26.9 Unspecified abnormalities of gait and mobility; N17.9 Acute kidney failure, unspecified; K52.9 Noninfective gastroenteritis and colitis, unspecified; E83.51 Hypocalcemia; E77.8 Other disorders of glycoprotein metabolism; D64.9 Anemia, unspecified; J45.909 Unspecified asthma, uncomplicated; E04.2 Nontoxic multinodular goiter; R29.810 Facial weakness; E88.09 Other disorders of plasma-protein metabolism, not elsewhere classified; M79.89 Other specified soft tissue disorders; R41.89 Other symptoms and signs involving cognitive functions and awareness; Z90.12 Acquired absence of left breast and nipple; Z85.3 Personal history of malignant neoplasm of breast; Z68.30 Body mass index [BMI] 30.0-30.9, adult; Z87.442 Personal history of urinary calculi
CPT/HCPCS: 80053; 82948; 85025; 85027; 92507 GN; 92523 GN; 94640; 94640 76; 97110 GO; 97530 GP; 97532 GN; 99202; J1650; J1815

== ENCOUNTER 2017-03-19 05:29 | Day surgery (SDC) | payer OTHER, BC ==
[~2017-03-19] VITALS: Ht 157.5 cm; Wt 70.3 kg
[~2017-03-19 05:29] MED LIST changes: +FLOVENT 11120 INHALA IH; +HEPARIN SO5000 UNIT4 SC; +PEPCID20 MG PO; +ROCEPHIN1 GM/50 ML IV
[2017-03-19 06:05] VITALS: BP 173/59
[2017-03-19 06:30] LABS: POINT-OF-CARE METER ID UU14174212
[2017-03-19 09:43] VITALS: BP 134/60
[2017-03-19 10:00] LABS: POINT-OF-CARE METER ID UU14174212
[2017-03-19 10:38] VITALS: BP 133/61
== END 2017-03-19 10:50 | disposition home or self-care (01) ==
LOC: SDC 05:29
PROVIDERS: Urology
DX: N20.1 Calculus of ureter (principal); Z87.440 Personal history of urinary (tract) infections; Z87.442 Personal history of urinary calculi; J45.909 Unspecified asthma, uncomplicated; E11.9 Type 2 diabetes mellitus without complications; I10 Essential (primary) hypertension; Z87.891 Personal history of nicotine dependence; Z85.3 Personal history of malignant neoplasm of breast; Z90.49 Acquired absence of other specified parts of digestive tract; Z90.710 Acquired absence of both cervix and uterus; Z82.49 Family history of ischemic heart disease and other diseases of the circulatory system; Z79.84 Long term (current) use of oral hypoglycemic drugs; Z88.0 Allergy status to penicillin; Z88.2 Allergy status to sulfonamides
CPT/HCPCS: 74000; 76000; 82948; C1876; J0690; J1580; J2250; J3010; J7050